=== PATIENT | male | born 1990 | race African-American/Black ===

== ENCOUNTER 2019-12-11 05:09 | Emergency (ER) | payer SELFPAY ==
[~2019-12-11] VITALS: Ht 182.9 cm; Wt 89.4 kg
[2019-12-11] MEDS ORDERED: HYDROcodone/Acetamin 5/325 tab ORAL ONE (05:45)
[2019-12-11] MEDS ORDERED: NORCO 5-325 TA1 EAC1 ORAL (05:51)
[2019-12-11] MEDS ORDERED: NAPROXEN500 M1 ORAL (05:51)
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
[2019-12-11 06:00] VITALS: BP 127/67
--- NOTE | 2019-12-11 18:14 | Diagnostic Imaging Report ---
Indications: Reason For Exam: PAIN Technique: Two views of the right humerus Comparison: None Findings: No acute fractures. No dislocations. The joint spaces are preserved. Impression: Negative
--- NOTE | 2019-12-11 18:15 | Diagnostic Imaging Report ---
Indications: Trauma, pain, status post fall Technique: Two views of the right forearm Comparison: None Findings: Positioning is suboptimal, due to inability of patient to extend his arm. No acute fractures. No dislocations. The joint spaces are preserved Impression: No definite acute process
--- NOTE | 2019-12-11 18:17 | Diagnostic Imaging Report ---
Indications:Elbow pain, trauma Technique: Three or 4 views of the right elbow Comparison: None Findings: Positioning is suboptimal, due to inability of patient to extend his arm. There is a nondisplaced fracture of the radial head. There is a large joint effusion. Impression: Positive for nondisplaced radial head fracture This agrees with the preliminary interpretation reported by the emergency room physician in the electronic medical record
== END 2019-12-11 06:00 | disposition home or self-care (01) ==
LOC: EMR 05:29
DX: S52.124A Nondisplaced fracture of head of right radius, initial encounter for closed fracture (principal); W19.XXXA Unspecified fall, initial encounter; Y92.9 Unspecified place or not applicable
CPT/HCPCS: 29105; 99291